=== PATIENT | male | born 1975 | race Caucasian/White ===

== ENCOUNTER 2020-08-14 16:43 | Emergency (ER) | payer OTHER, SELFPAY ==
[2020-08-14 17:01] VITALS: BP 154/95; PULSE 83; RESP 16; TEMP 36.7; O2SAT 97; BMI 34.2
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
[2020-08-14 18:18] VITALS: BP 137/88; PULSE 84; RESP 16; O2SAT 97
== END 2020-08-14 18:19 | disposition home or self-care (01) ==
PROVIDERS: Emergency Provider Physician Assistant; Family Provider Nurse Practitioner; PCP Family Medicine
DX: S50.01XA Contusion of right elbow, initial encounter (principal); V69.50XA Passenger in heavy transport vehicle injured in collision with unspecified motor vehicles in traffic accident, initial encounter
CPT/HCPCS: 12345; 73080; 99281; 99282

== ENCOUNTER 2021-03-19 07:55 | Outpatient (CLI) | payer BC, SELFPAY ==
--- NOTE | 2021-03-19 07:59 | CT_ITS ---
WS: [id number] CT NECK WITHOUT CONTRAST. HISTORY: NONTOXIC SINGLE THYROID Nodule; neck PAIN TECHNIQUE: Contiguous 5 mm axial images are performed through the neck without intravenous contrast. Sagittal and coronal reformats are also submitted. All CT scans at [facility] use at leas t one of these dose optimization techniques: automated exposure control; mA and/or kV adjustment per patient size (includes targeted exams where dose is matched to clinical indication); or iterative rec onstruction. CONTRAST: CONTRAST: None DLP: 876.72 mGy-cm. COMPARISON: Cervical spine CT 08/24/2018 Nasopharynx, oropharynx, hypopharynx and larynx are unremarkable. No soft tissue masses or enlargemen t. Torus tubarius and fossa of Rosenmuller and parapharyngeal fat are normal. No significant lymphadenopathy is identified. Thyroid gland and salivary glands are negative. Mild degenerative disc disease and spondylosis in the mid to lower cervical spine. Visualized portions of the skull base demonstrate no abnormalities. Orbits and globes are within norm al limits. No soft tissue masses. Visualized paranasal sinuses and mastoid air cells are normal. Lung apices are clear. CT/CT neck wo con [id number] IMPRESSION: 1. No neck mass or adenopathy identified on this unenhanced study. 2. Symmetric appearance of the soft tissues. 3. No thyroid nodule identified.
== END 2021-03-19 07:56 | disposition home or self-care (01) ==
LOC: RADWPI 07:58
PROVIDERS: PCP Nurse Practitioner Family; Visit Provider Nurse Practitioner Family
DX: E04.1 Nontoxic single thyroid nodule (principal); M54.2 Cervicalgia
CPT/HCPCS: 70490

== ENCOUNTER → 2021-08-17 13:13 | Outpatient (BNVA) | payer BC, SELFPAY | PROVIDERS: PCP Nurse Practitioner Family; Visit Provider Surgery | DX: Z20.822 Contact with and (suspected) exposure to COVID-19 (principal); Z12.11 Encounter for screening for malignant neoplasm of colon | CPT/HCPCS: 87635 ==

== ENCOUNTER 2021-08-22 07:29 | Day surgery (SDC) | payer BC, SELFPAY ==
[2021-08-20 13:59] VITALS: BMI 33.7
[2021-08-22 07:42] VITALS: BP 133/86; PULSE 95; RESP 18; TEMP 36.8; O2SAT 98
--- NOTE | 2021-08-22 07:51 | P.ANESASSM_ITS ---
Pre-Anesthetic Assessment Pre-Anesthetic Assessment: Height/Weight: Height 1.78 m Weight 106.594 kg Preop Diagnosis: Screening colonoscopy Proposed Procedure: Operation Date: 08/22/21 08:30 Proposed Procedures p Colonoscopy 99829 z12.11(Not Applicable) - Aravind Ryder MD Familial anesthetic complications: none Was Beta Elmo taken within 24 hours: N/A Was Clonidine taken within 24 hours: N/A Social: Social History: No alcohol and No tobacco Exam: Pre-Anes Outpt Exam: alert, oriented x 3 and clear to auscultation bila terally Airway: Submandibular: WNL Cervical ROM: WNL MP: 1 Dentition: Full History/ROS: No significant history except as noted Pulmonary: Pulmonary: None reported CV/HEM: CV/HEM: None reported : : None reported Hepatic: Hepatic: None reported GI: GI: GERD and Hiatus hernia Metabolic: Metabolic: None reported Neuropsych: Neuropsych: None reported Anesthetic Plan: ASA status: 1 Anesthesia: MAC PFSH Anesthesia PFSH: Medical History Screen for colon cancer Social History Smoking and tobacco status: never smoked Data Anesthesia Cardiac Studies: No Data to Display
[2021-08-22] MEDS: sodium chloride 0.9% 1,000 ML 30 ML IV (07:57)
--- NOTE | 2021-08-22 08:09 | P.HP_ITS ---
Same Day Surgery H&P Indication for Procedure/HPI DATE OF PROCEDURE: August 22, 2021 CHIEF COMPLAINT/INDICATIONFOR SURGICAL PROCEDURE: Screening colonoscopy PREOP DIAGNOSIS: Screening colonoscopy PLANNED PROCEDRUE: Operation Date: 08/22/21 08:30 Proposed Procedures p Colonoscopy 50057 z12.11(Not Applicable) - Aravind Ryder MD This is a pleasant 46 years old gentleman never had a colonoscopy before, denies bleeding per rectum and he does report history of his grandpa at the age of 70 developed colorectal cancer. Patient is referred to me to discuss colonoscopy for screening purposes Interim history 08/22/2021 Patient comes today for screening colonoscopy ROS All systems have been reviewed negative except as for the above or per problem list Medications/Allergies* Home Medications Medication Instructions Recorded Confirmed Type cholecalciferol (vitamin D3) 25 25 mcg PO DAILY 05/31/21 08/22/21 History mcg (1,000 unit) capsule garlic 300 mg capsule 300 mg PO DAILY 05/31/21 08/22/21 History milk thistle 150 mg capsule 150 mg PO BID 05/31/21 08/22/21 History tumeric 100 mg-kandis 150 mg-olive 1 cap PO DAILY 05/31/21 08/22/21 History 50 mg-oreg 150 mg-caprylate capsule Allergies/Adverse Reactions Allergy/AdvReac Type Severity Reaction Status Date / Time No Known Allergies Allergy Verified 06/01/21 14:31 Current Medications: Generic Name Dose Route Start Last Admin Trade Name Freq PRN Reason Stop Dose Admin Sodium Chloride 1,000 mls @ 30 mls/hr 08/22/21 07:45 08/22/21 07:57 Sodium Chloride 0.9% IV 08/23/21 07:44 30 mls/hr .Q24H HARMEET Administration Pertinent History/Comorbid Conditions* Medical History (Updated 06/01/21 @ 14:31 by Aravind Ryder MD) Screen for colon cancer Social History Smoking and tobacco status: never smoked Pertinent Exam Findings alert, oriented x 3, regular rate & rhythm and procedure specific exam findings (Abdominal examination nontender nondistended soft) Recommendations Surgery/Procedure today (Colonoscopy with possible BIOPSY) Coding Level of Care Code Acute Telecommunications Analyst for Anabela Saavedra
[2021-08-22 08:48] VITALS: BP 98/61; PULSE 66; RESP 18; TEMP 36.5; O2SAT 96
[2021-08-22 09:04] VITALS: BP 113/71; PULSE 74; RESP 18; O2SAT 100
--- NOTE | 2021-08-22 09:39 | ANE.PACU2 ---
Inpatient post-anesthesia follow up: Airway intact: Yes Vital signs: Temperature 97.7 F Pulse Rate 74 Respiratory Rate 18 Blood Pressure 113/71 Pulse Oximetry 100 Oxygen Delivery Me thod Room Air Oxygen Flow Rate Fraction of Inspir ed Oxygen Hydration adequate: Yes Nausea and vomiting: No Mental status: Baseline
== END 2021-08-22 09:17 | disposition home or self-care (01) ==
PROVIDERS: PCP Nurse Practitioner Family; Visit Provider Surgery
PROC: 0DJD8ZZ Inspection of Lower Intestinal Tract, Via Natural or Artificial Opening Endoscopic (ICD-10-PCS; CPT 45378; principal; 2021-08-22 08:30)
DX: Z12.11 Encounter for screening for malignant neoplasm of colon (principal); Z80.0 Family history of malignant neoplasm of digestive organs
CPT/HCPCS: 45378; 96360; J2704; J7030